=== PATIENT | female | born 1995 | race Caucasian/White ===

== ENCOUNTER 2018-06-20 00:35 | Emergency (ER) | payer MEDICAID ==
[~2018-06-20] VITALS: Ht 154.9 cm; Wt 72.7 kg
[~2018-06-20 00:35] MED LIST: AZIT500T5 PO; COROTSUS OT; FLUO10CA66 PO; MEDR150D9 IM; NITR100C6 PO; ONDA4TAB12 PO; ONDA4TAB6 PO
[2018-06-20] MEDS ORDERED: ondansetron 4mg rapidly disintigrating tab PO ONE (00:55)
[2018-06-20 01:03] LABS: URINE HCG NEGATIVE (NEG)
[2018-06-20 01:06] LABS: CLARITY,URINE CLOUDY (Clear); COLOR,URINE YELLOW (Yellow); GLUCOSE, URINE NEGATIVE (Neg); KETONES,URINE NEGATIVE (Neg); LEUKOCYTE ESTERASE ,URINE SMALL (Neg); NITRITES, URINE NEGATIVE (Neg); OCCULT BLOOD,URINE LARGE (Neg); PROTEIN,URINE TRACE mg/dl (Neg)
[2018-06-20 01:08] LABS: UA COLLECTION TYPE CLN CATCH MIDSTREAM
[2018-06-20 01:13] LABS: BACTERIA,URINE 4+ /HPF (Neg); RBC,URINE 20-50 /HPF (0-2); SQUAMOUS EPITHELIAL CELL,UR MANY /LPF (FEW)
[2018-06-20 01:35] LABS: BASOPHILS % (AUTO) 0.3 % (0-1); EOSINOPHILS # (AUTO) 0.2 X10'3 (0-0.9); EOSINOPHILS % (AUTO) 2.2 % (0-6); HEMOGLOBIN 13.8 g/dl (12.0-16.0); LYMPHOCYTES # (AUTO) 2.2 X10'3 (1.1-4.8); LYMPHOCYTES % (AUTO) 26.8 % (21-51); MEAN CORPUSCULAR HEMOGLOBIN 29.3 PG (27.0-31.0); MEAN CORPUSCULAR HGB CONC 32.8 % (33.0-36.5); MEAN CORPUSCULAR VOLUME 89.2 FL (78-98); MEAN PLATELET VOLUME 8.2 FL (7.4-10.4); MONOCYTES # (AUTO) 0.6 X10'3 (0-0.9); MONOCYTES % (AUTO) 6.7 % (2-12); NEUTROPHILS # (AUTO) 5.3 X10'3 (1.8-7.7); PLATELET COUNT 269 X10'3 (140-440); RED BLOOD COUNT 4.71 X10'6 (4.20-5.60); RED CELL DISTRIBUTION WIDTH 12.9 % (11.5-14.5); WHITE BLOOD COUNT 8.3 X10'3 (4.5-11.0)
[2018-06-20] MEDS ORDERED: ONDA4TAB6 PO ×2 (01:40→02:27)
[2018-06-20] MEDS ORDERED: NITR100C6 PO (01:40)
[2018-06-20 01:58] LABS: ALANINE AMINOTRANSFERASE 28 U/L (12-78); ALBUMIN 3.8 G/DL (3.4-5.0); ALBUMIN/GLOBULIN RATIO 1.1 (1.1-1.5); ALKALINE PHOSPHATASE 100 IU/L (46-116); ANION GAP 8 (8-16); ASPARTATE AMINO TRANSFERASE 15 U/L (10-37); BILIRUBIN,TOTAL 0.3 MG/DL (0.1-1.0); BLOOD UREA NITROGEN 11 MG/DL (7-18); BUN/CREATININE RATIO 8.6 (6.6-38.0); CALCIUM 8.7 MG/DL (8.5-10.1); CHLORIDE 107 MMOL/L (99-107); CREATININE 1.28 MG/DL (0.40-0.90); GLUCOSE 79 MG/DL (70-104); LIPASE 94 U/L (73-393); POTASSIUM 3.8 MMOL/L (3.5-5.1); SODIUM 144 MMOL/L (135-145); TOTAL CARBON DIOXIDE 28.8 MMOL/L (24-32); TOTAL PROTEIN 7.2 G/DL (6.4-8.2); eGFR 53 ML/MIN
[2018-06-20 02:55] VITALS: BP 101/65
== END 2018-06-20 03:01 | disposition home or self-care (01) ==
LOC: ER 00:36
DX: K52.9 Noninfective gastroenteritis and colitis, unspecified (principal); N39.0 Urinary tract infection, site not specified; G43.909 Migraine, unspecified, not intractable, without status migrainosus; F41.9 Anxiety disorder, unspecified; F12.10 Cannabis abuse, uncomplicated; Z88.0 Allergy status to penicillin; Z88.8 Allergy status to other drugs, medicaments and biological substances; Z91.018 Allergy to other foods
CPT/HCPCS: 36415; 80053; 81001; 81025; 83690; 85025; 99284

== ENCOUNTER 2018-08-09 07:46 | Emergency (ER) | payer MEDICAID ==
[~2018-08-09] VITALS: Ht 154.9 cm; Wt 80.9 kg
[2018-08-09 08:54] LABS: URINE HCG NEGATIVE (NEG)
[2018-08-09] MEDS ORDERED: ondansetron/PF 4mg/2ml inj IV ONE (08:55)
[2018-08-09] MEDS ORDERED: normal saline 1000ML IV soln IVB ONE ×2 (08:55)
[2018-08-09] MEDS ORDERED: famotidine/PF 10 mg/ml inj IV ONE (08:55)
[2018-08-09 09:29] VITALS: BP 109/43
== END 2018-08-09 10:44 | disposition home or self-care (01) ==
LOC: ER 07:46
DX: K52.9 Noninfective gastroenteritis and colitis, unspecified (principal); G43.909 Migraine, unspecified, not intractable, without status migrainosus; F12.90 Cannabis use, unspecified, uncomplicated; Z88.0 Allergy status to penicillin; Z88.8 Allergy status to other drugs, medicaments and biological substances; Z91.018 Allergy to other foods; Z79.2 Long term (current) use of antibiotics; Z79.899 Other long term (current) drug therapy
CPT/HCPCS: 81025; 96361; 96374; 96375; 99284; J2405; J3490